=== PATIENT | male | born 1970 | race African-American/Black ===

== ENCOUNTER → 2017-04-18 | Outpatient (CLI) | payer OTHER | LOC: CAT 08:41 | DX: Z13.6 Encounter for screening for cardiovascular disorders (principal) ==

== ENCOUNTER 2019-02-05 05:49 | Day surgery (SDC) | payer BC, OTHER ==
[~2019-02-05] VITALS: Ht 177.8 cm; Wt 92.5 kg
[~2019-02-05 05:49] MED LIST: LIPITOR 20 MG T20 M1 PO; TRIAMTERENE/HCT1 CA1 PO
[2019-02-05 06:36] LABS: CREATININE 1.1 mg/dL (0.7-1.3); POTASSIUM 3.6 mmol/L (3.5-5.1)
[2019-02-05 07:03] VITALS: BP 132/83
[2019-02-05 08:52] VITALS: BP 132/83
--- NOTE | 2019-02-05 16:10 | EKG ---
[place] [address] [facility] [place] [address] ELECTROCARDIOGRAM REPORT Name: KIMMIE STOCKTON Room #: DEP [facility]#: [id number] ������������������ Admission: 02/05/19 ������������������ Attend Phys: Dorian Stanford MD Discharge: 02/05/19 ������������������ Date of : 66 Report #: [id number] ����������������������������������������������������������������� [id number] THIS REPORT FOR: //name// [facility] Test Date: 2019-02-05 Test Time: 06:35:37 Pat Name: KIMMIE STOCKTON Department: Room: 150 2 Gender: M Cardiac Tech: ELLE : 1970 Requested By: Dorian Stanford Order Number: [id number] MD: Aden Amato Measurements Intervals [place] Rate: 68 P: -1 CT: 191 QRS: 1 QRSD: 87 T: 16 QT: 366 QTc: 390 Interpretive Statements Sinus rhythm Normal tracing No previous ECG available for comparison Electronically Signed On 02-05-2019 16:09:52 CDT by Aden Amato [email or web address] ��������������������������������������������� <ELECTRONICALLY SIGNED> ���������������������������������������� By: Aden Amato MD, [facility] ��������������������������������������������� 02/05/19 1609 0635 0635 Aden Amato MD, FACC /EPI
--- NOTE | 2019-02-08 16:06 | PATH ---
[facility] [address] [address] PATHOLOGY RPT PROCEDURE Name: KIMMIE STOCKTON Room #: DEP [facility] MSammy.#: [id number] ������������������ Admission: 02/05/19 ������������������ Date of : 66 Discharge: 02/05/19 Report #: [id number] Path Case #: [id number] [facility] Accession Number: [id number] . 01 Material submitted: . nasal cavity - LEFT SEEMA BULLOSA . 01 Clinical history: . Deviated septum, turbinate hypertrophy . 02 Diagnosis: Sinonasal mucosal fragments and cartilage, left seema bullosa, septoplasty, turbinectomy and polypectomy: - Fragments of sinonasal mucosa with mild chronic inflammation; negative for increase in eosinophils within the infiltrate. - Fragments of reactive cartilage and bone. - Fragments of polypoid mucosa lined by stratified squamous epithelium with focal keratinization; negative for dysplasia. (IUV:joey; 02/08/2019) MBR/02/08/2019 . 02 Comment: Multiple fragments of sinonasal mucosa are present. A few of these fragments show abundant vessels within the stroma. A definitive "polyp" is not identified. There is no evidence of dysplasia or malignancy within the current specimen. (IUV:plant technician; 02/08/2019) . 02 Electronically signed: . Josefina Yeh MD, Pathologist NPI- [id number] . 01 Gross description: . The specimen is received in formalin, labeled "Kimmie Stockton, left seema, bullosa", are multiple irregular fragments of montez-white cartilage, turbinate and possible bone and flood soft tissue measuring 2.0 x 1.8 x 0.5 in aggregate. This is entirely submitted in A1 after decalcification. Also received is a flood-pink, rubbery tissue measuring 1.4 x 1.2 x 0.2 cm. This is serially sectioned and entirely submitted in A2 after decalcification. ([facility]; 02/05/2019) SHS/SHS . 02 Pathologist provided ICD-10: J32.9 . 02 CPT . 951296, [id number] [place] [address] PATHOLOGY RPT PROCEDURE Name: KATHNELIDAKIMMIE T Room #: DEP [facility] Sherlyn#: [id number] ������������������ Admission: 02/05/19 ������������������ Date of : 66 Discharge: 02/05/19 Report #: [id number] Path Case #: [id number] Specimen Comment: A courtesy copy of this report has been sent to Specimen Comment: [phone], . Specimen Comment: Report sent to / DR CUELLAR Performed at: [address], [place], [place] [id number] MD Brien Walker MD Phone: [phone] Performed at: [address] [id number] MD Josefina Yeh MD Phone: [phone]
--- NOTE | 2019-02-10 11:48 | H ---
[facility] [place] [place] [address] HISTORY AND PHYSICAL Name: KATHKIMMIE T Room #: DEP [facility]..#: [id number] Admission: 02/05/19 ������������������ Attend Phys: Dorian Stanford MD Discharge: 02/05/19 ������������������ Date of : 66 Report #: [id number] THIS REPORT FOR: //name// [facility]. CHIEF COMPLAINT: Nasal airway obstruction, gagan bullosa. HISTORY OF PRESENT ILLNESS: The patient is a 48-year-old male, originally seen by Dr. Aden on 12/07 due to history of chronic nasal congestion and obstruction and unable to use a CPAP machine. He was referred to see me at the end of November of this year. He has a known history of moderate obstructive sleep apnea without oxygen desaturation and failed a month trial of CPAP. PHYSICAL EXAMINATION: His head and neck examination is notable substantial for nasal abnormalities. He has a severe right nasal septal deviation with moderate turbinate hypertrophy noted. He has a large left middle turbinate gagan bullosa. He has what appears to be polypoid mass involving the turbinates as well. We accomplished a CT scan of his sinuses. I discussed with him the nasal and turbinate anatomy. These findings are as noted above. I recommended at this time that he consider surgical therapy to address that the septum with a nasal septal reconstruction. I also recommended excision of his left gagan bullosa along with a turbinate reduction surgery and limited polypectomy as well. I discussed the risks of surgery with him as outlined in his office chart and discussed nonsurgical alternatives as well. He agrees at this point to proceed forward with surgery. ALLERGIES TO MEDICATION: None. MEDICATIONS ON ADMISSION: Atorvastatin 20 mg a day, triamterene hydrochlorothiazide 1 a day. PAST MEDICAL AND SURGICAL HISTORY: Obstructive sleep apnea, essential hypertension and allergic rhinitis. PAST SURGICAL HISTORY: Unremarkable. FAMILY HISTORY: Noncontributory. REVIEW OF SYSTEMS: Negative for any other known GI, , cardiovascular, pulmonary or hematopoietic issues aside from the above-mentioned sleep apnea. PHYSICAL EXAMINATION: [facility] [address] [place] [address] HISTORY AND PHYSICAL Name: KIMMIE STOCKTON [facility] #[facility] [id number] Admission: 02/05/19 ������������������ Attend Phys: Dorian Stanford MD Discharge: 02/05/19 ������������������ Date of : 66 Report #: [id number] VITAL SIGNS: Height of 5 feet 10 inches, weight of 205 pounds. Last recorded blood pressure 125/85. HEENT: Normal appearance to the head. No craniofacial abnormalities are noted. Ears unremarkable. The nose as described above. Oral cavity is a Clay Mallampati class 2, NECK: Normal. CHEST: Clear. CARDIOVASCULAR: Regular rate and rhythm. ASSESSMENT: History of nasal airway obstruction. PLAN: Will be above-mentioned surgery. ��������������������������������������������� <ELECTRONICALLY SIGNED> ���������������������������������������� By: Dorian Stanford MD ��������������������������������������������� 02/10/19 1148 0900 0948 Dorian Stanford MD /jax
--- NOTE | 2019-02-10 11:48 | O ---
[facility] [place] [place] [address] OPERATIVE REPORT Name: KATHKIMMIE T Room #: [facility].#: [id number] Admission: 02/05/19 ������������������ Attend Phys: Dorian Stanford MD Discharge: 02/05/19 ������������������ Date of : 66 Report #: [id number] THIS REPORT FOR: //name// CC: Dorian Cohenal Ramirez DATE OF SERVICE: 02/05/2019 PREOPERATIVE DIAGNOSES: Nasal septal deformity, turbinate hypertrophy, gagan bullosa. POSTOPERATIVE DIAGNOSES: Nasal septal deformity, turbinate hypertrophy, gagan bullosa. PROCEDURE: Nasal septal reconstruction, endoscopic excision of left middle turbinate gagan bullosa, submucous resection of inferior turbinates with outfracturing bilaterally. SURGEON: Dorian Stanford M.D. ANESTHESIA: General LMA. INDICATIONS: See H and P. FINDINGS: Large left gagan bullosa was noted with severe deviation of the nasal septum to the patient's right side involving both the cartilaginous and bony portion of the septum. A prominent inferior turbinates were noted as well. No nasal polyps were visualized. TECHNIQUE: After obtaining consent, he was brought to the operating suite, appropriate time-out was performed. General LMA anesthesia was obtained, the bed was turned 90 degrees, placed in a slight head up position. Cottonoids soaked with Afrin were placed in the nasal cavity for vasoconstriction. 4 mL of 1% Xylocaine 1:100,000 epinephrine was injected in each side of the septum and 1 mL was injected into the left middle turbinate and a mL in each inferior turbinate, total used was a 8 mL of local anesthetic. Cottonoids were removed. A 0-degree endoscope was used to intubate the left naris under endoscopic guidance. Using a sickle knife, the gagan bullosa was bivalved in the midline, and using endoscopic scissors and straight Mehul-Cut forceps, I removed the lateral two-thirds of the left gagan bullosa. I used a microdebrider blade to freshen the lateral edges back to healthy appearing undevitalized tissue. This greatly allowed the middle turbinate to be in a more appropriate position. The right nasal cavity was intubated with the speculum. A right hemitransfixion [address] [address] OPERATIVE REPORT Name: KIMMIE STOCKTON Room #: [facility] M..#: [id number] Admission: 02/05/19 ������������������ Attend Phys: Dorian Stanford MD Discharge: 02/05/19 ������������������ Date of : 66 Report #: [id number] incision was performed. I then elevated the mucosal flap on the left side exposing the vomer, perpendicular plate and quadrangular cartilage. The large deviation was addressed by harvesting a large portion of the quadrangular cartilage, leaving enough anterior and superior for tip support. Bony-cartilaginous junction was disarticulated. I then elevated mucosal flap off the vomer and perpendicular plate on both sides to expose continue deviation, which was taken down with a combination of Raimundo-Diane scissors and Jennifer forceps. I then elevated down on to the maxillary crest, it was found to be bowed to the patient's right side. This was taken down with a combination of Raimundo-Diane scissors and a 4 mm chisel. Upon removal of all this tissue, the septum was found to be in a very straight position. Previously harvested cartilage was morcellized, placed back between the septal folds. A small incision was made on the right inferior septal flap to allow for postoperative drainage purposes. The hemitransfixion incision was closed with simple interrupted 4-0 chromic sutures. Simple splints were placed on each side and secured with a 3-0 Prolene suture. Each inferior turbinate was medialized with a Trenton elevator, a small stab incision was made in the anterior portion of the inferior turbinate with a Nicholas blade, and elevated mucosal flap on the medial inferior surface of each inferior turbinate. The microdebrider turbinate blade was then used to submucosally reduce the turbinate. Each inferior turbinate was then outfractured. At this point, a single piece of Merogel was placed lateral to the gagan bullosa on the left side. I cut another piece of Merogel and bifolded it and placed it between the septum and the inferior turbinates to prevent any synechia formation. The nasopharynx was suctioned free of any secretions. There was no active bleeding. He was turned back over to anesthesia at this time where he was lightened, extubated and taken to recovery room in stable condition. ESTIMATED BLOOD LOSS: 10 mL. ��������������������������������������������� <ELECTRONICALLY SIGNED> ���������������������������������������� By: Dorian Stanford MD ��������������������������������������������� 02/10/19 1148 0844 0918 Dorian Stanford MD /jax
== END 2019-02-05 10:10 | disposition home or self-care (01) ==
LOC: OR 05:49 → TBA 05:50 → OR 10:10
PROVIDERS: Otolaryngology
DX: J34.2 Deviated nasal septum (principal); J34.3 Hypertrophy of nasal turbinates; J34.89 Other specified disorders of nose and nasal sinuses; I10 Essential (primary) hypertension; E78.00 Pure hypercholesterolemia, unspecified; F17.210 Nicotine dependence, cigarettes, uncomplicated; Z79.899 Other long term (current) drug therapy; Z98.890 Other specified postprocedural states
CPT/HCPCS: 50010; 50101; 50286; 50386; 50398; 51316; 51634; 53635; 56526; 56528; 62110; 62900; 64037; 70005

== ENCOUNTER → 2020-07-21 | Outpatient (CLI) | payer BC, OTHER | LOC: RAD 09:55 | PROVIDERS: ATTEND Family Medicine | DX: K42.9 Umbilical hernia without obstruction or gangrene (principal) ==